=== PATIENT | male | born 1990 | race Caucasian/White ===

== ENCOUNTER 2021-05-19 19:45 | Emergency (ER) | payer BC, OTHER ==
[~2021-05-19] VITALS: Ht 177.8 cm; Wt 95.3 kg
[2021-05-20 00:05] VITALS: BP 146/86
== END 2021-05-20 00:20 | disposition home or self-care (01) ==
LOC: ER 19:45
DX: J06.9 Acute upper respiratory infection, unspecified (principal); Z20.822 Contact with and (suspected) exposure to COVID-19
CPT/HCPCS: 36415; 87426